=== PATIENT | male | born 1990 | race Hispanic/Latino ===

== ENCOUNTER → 2025-02-10 09:14 | Outpatient (REF) | payer OTHER, SELFPAY ==
[2025-02-10 10:05] LABS: Hematocrit 41.0 % (39.0-52.0); Hemoglobin 14.1 g/dL (13.0-18.0); Mean Corp Hgb Conc. 34.4 g/dL (33.0-37.0); Mean Corpuscular Volume 84.2 fL (80.0-94.0); Nucleated Red Blood Cells % 0 % (-); Platelet Count 286 10^3/uL (130-400); Red Cell Dist. Width 11.9 % (11.5-14.5); Reticulocyte Count 1.6 % (0.4-2.8)
[2025-02-10 10:32] LABS: ALT (SGPT) 34 U/L (0-50); AST (SGOT) 24 U/L (17-59); Albumin 4.9 g/dl (3.5-5.0); Alkaline Phosphatase 63 U/L (38-126); Blood Urea Nitrogen 19 mg/dl (9-20); Calcium 9.6 mg/dl (8.4-10.2); Carbon Dioxide 26 mmol/L (22-30); Chloride 103 mmol/L (98-107); Glucose 101 mg/dl (70-99); HDL Cholesterol 37 mg/dl; LDL Cholesterol, Calculated 93 mg/dl; Potassium 4.1 mmol/L (3.5-5.1); Sodium 139 mmol/L (135-145); Total Protein 7.6 g/dl (6.3-8.2); Very Low Density Lipoprotein 24 mg/dl (0-30); eGFR > 60.00
[2025-02-10 12:01] LABS: Glycohemoglobin (HgbA1c) 5.8 % (4.0-5.6)
== END ==
LOC: REG 09:14
PROVIDERS: ATTENDING PHYSICIAN Internal Medicine
DX: Z13.1 Encounter for screening for diabetes mellitus (principal)
CPT/HCPCS: 36415; 80053; 80061; 83036; 85025; 85045